=== PATIENT | female | born 1975 | race Caucasian/White ===

== ENCOUNTER 2017-03-25 14:09 | Emergency (ER) | payer OTHER ==
[~2017-03-25] VITALS: Ht 162.6 cm; Wt 108.9 kg
[2017-03-25 14:47] LABS: microscopic required? NO
[2017-03-25 14:55] LABS: UA SPECIFIC GRAVITY <=1.005 (1.005-1.035); urine erythrocyte NEGATIVE (NEGATIVE)
[2017-03-25 15:05] LABS: BASOPHIL % 0.9 % (0-2); PLATELET COUNT 169 x10^3mcL (130-400)
[2017-03-25 15:07] LABS: RED CELL DISTRIBUTION WIDTH 15.5 % (11.5-14.5)
[2017-03-25 15:11] LABS: CALCIUM 8.4 mg/dL (8.5-10.1); CARBON DIOXIDE 24.7 mmol/L (21-32); CHLORIDE SERUM 105 mmol/L (98-107); CREATININE SERUM 0.6 mg/dL (0.6-1.0); GFR1 > 60 mL/min; GLUCOSE SERUM 99 mg/dL (74-106); POTASSIUM SERUM 3.6 mmol/L (3.5-5.1); SODIUM SERUM 139 mmol/L (136-145)
[2017-03-25 15:14] LABS: ALKALINE PHOSPHATASE 85 U/L (46-116); ALT/SGPT 14 U/L (14-59); AMYLASE 53 U/L (25-115); AST/SGOT 14 U/L (15-37); BILIRUBIN TOTAL 0.7 mg/dL (0.20-1.00); CHOLESTEROL 152 mg/dL (<200); LIPASE 210 IU/L (73-393); TOTAL PROTEIN, SERUM 7.1 g/dL (6.4-8.2)
[2017-03-25 15:15] LABS: ALBUMIN 3.2 g/dL (3.4-5.0); HDL CHOLESTEROL 73 mg/dL (40-60)
[2017-03-25 15:16] LABS: AMPHETAMINE QUAL UR NONE DETECTED (NEG <=1000)
[2017-03-25 16:11] VITALS: BP 136/82
== END 2017-03-25 16:11 | disposition home or self-care (01) ==
LOC: ED 14:09
PROVIDERS: Emergency Medicine
DX: G89.29 Other chronic pain (principal); R07.89 Other chest pain; M54.9 Dorsalgia, unspecified; R10.9 Unspecified abdominal pain; F20.0 Paranoid schizophrenia; E66.01 Morbid (severe) obesity due to excess calories; E46 Unspecified protein-calorie malnutrition
CPT/HCPCS: 36415; 83880; Q0092